=== PATIENT | male | born 1955 | race Caucasian/White ===

== ENCOUNTER 2016-10-27 06:31 | Emergency (ER) | payer BC ==
[2016-10-27 06:46] VITALS: TEMP 98.2; BMI 25.7
--- NOTE | 2016-10-27 07:10 | PDOC ---
History of Present Illness - General Chief Complaint: Palpitations Stated Complaint: PALPITATION Time Seen by Provider: 10/27/16 07:09 History Source: Patient Exam Limitations: No Limitations - History of Present Illness Initial Comments: 10/27/16 07:09 CHIEF COMPLAINT: Palpitations HISTORY OF PRESENT ILLNESS: This is a 61 year old male with a history of CAD s/ p MT, HTN, EtOH abuse, and Afib on warfarin/metoprolol who presents to the ED complaining of palpitations which woke him from sleep this morning. He reports that they lasted for several hours. He took his Toprol earlier than usual, with resolution of symptoms. He denies any associated shortness of breath, chest pain , diaphoresis, fevers/chills, or any other symptoms. He has not had LE edema, PND, orthpnea, or decreased ET. He denies cigarette smoking, calf pain, cough/ hemoptysis, recent travel/surgery, and family/personal history of hypercoaguability. He reports that he drank 6 glasses of wine before bed last night. V/s on arrival are unremarkable. EKG shows atrial fibrillation with ventricular rate of 96 with PVCs. Service Consultant is Dr. Angel Moreno ([facility]) [phone]. REVIEW OF SYSTEMS: GENERAL/CONSTITUTIONAL: No fever or chills. No weakness. No weight change. HEAD, EYES, EARS, NOSE AND THROAT: No change in vision. No ear pain or discharge. No sore throat. CARDIOVASCULAR: See HPI. RESPIRATORY: No cough, wheezing, or shortness of breath. GASTROINTESTINAL: No nausea, vomiting, diarrhea or constipation. GENITOURINARY: No dysuria, frequency, or change in urination. MUSCULOSKELETAL: No joint or muscle swelling or pain. No neck or back pain. SKIN: No rash or easy bruising. NEUROLOGIC: No headache, vertigo, loss of consciousness, or loss of sensation. PSYCHIATRIC: No depression or anxiety. ENDOCRINE: No increased thirst. No abnormal weight change. HEMATOLOGIC/LYMPHATIC: No anemia, easy bleeding, or history of blood clots. ALLERGIC/IMMUNOLOGIC: No hives or skin allergy. No latex allergy. PHYSICAL EXAM: GENERAL: The patient is awake, alert, and fully oriented, in no acute distress. ENT: Pupils equal, round and reactive to light, extraocular movements intact, sclera anicteric, conjunctiva clear. Neck supple. LUNGS: Clear to auscultation bilaterally. Normal excursion. No respiratory distress or use of accessory muscles. CV: Irregular rhythm, S1/S2, no MRG. Cap refill < 2 sec. ABDOMEN: Soft, non-distended, non-tender. EXTREMITIES: Normal range of motion, no edema. NEUROLOGICAL: Normal speech, normal gait. CN II-XII grossly intact. PSYCH: Normal mood, normal affect. SKIN: Diaphoretic. Past History - Past Medical History Allergies/Adverse Reactions: Allergies Allergy/AdvReac Type Severity Reaction Status Date / Time No Known Allergies Allergy Verified 10/27/16 06:42 Home Medications: Ambulatory Orders Metoprolol Succinate [Toprol XL -] 100 mg PO DAILY 07/04/14 Pantoprazole Sodium [Protonix] 40 mg PO DAILY 07/04/14 Warfarin Sodium 5 mg PO DAILY 07/04/14 Aspirin [ASA -] 81 mg PO DAILY 11/20/14 Atorvastatin Ca [Lipitor] 10 mg PO HS 11/20/14 Ramipril [Altace] 2.5 mg PO DAILY 11/20/14 Folic Acid - 1 mg PO DAILY #7 tablet 12/17/15 Thiamine HCl [Vitamin B1 -] 100 mg PO DAILY #14 tablet 12/17/15 Cardiac Disorders: Yes (CAD AFIB) GI Disorders: Yes (GERD) HTN: Yes Hypercholesterolemia: Yes - Immunization History Immunization Up to Date: Yes - Psycho/Social/Smoking Cessation Hx Anxiety: No Suicidal Ideation: No Smoking History: Never smoked Have you smoked in the past 12 months: No Number of Cigarettes Smoked Daily: 0 Cigars Per Day: 0 Information on smoking cessation initiated: No Hx Alcohol Use: No Drug/Substance Use Hx: No Substance Use Type: Alcohol Hx Substance Use Treatment: No *Physical Exam - Vital Signs Last Vital Signs Temp Pulse Resp BP Pulse Ox 98.2 F 82 20 130/91 98 10/27/16 06:42 10/27/16 06:42 10/27/16 06:42 10/27/16 06:42 10/27/16 06:42 ED Treatment Course - LABORATORY CBC & Chemistry Diagram: 10/27/16 07:30 10/27/16 07:30 Medical Decision Making - Medical Decision Making 10/27/16 07:42 A/P: 61 year old male with palpitations; previously known history of Afib, on warfarin and metoprolol (reports adherence to both). Currently asymptomatic. 1. EKG: Afib with ventricular rate 96, PVCs 2. Obtain CXR 3. Cardiac labs 4. 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 Contacted his venture capitalist's service and was given a number for a covering venture capitalist, Dr. Pearson- discussed the case with him. *DC/Admit/Observation/Transfer Diagnosis at time of Disposition: Palpitations - Discharge Dispostion Disposition: HOME Admit: No - Patient Instructions Printed Discharge Instructions: DI for Atrial Fibrillation Additional Instructions: You were seen today for palpitations. Your EKG shows atrial fibrillation with a controlled rate. Your cardiac lab work is all normal. Your INR (Coumadin level) is high at 3.7. Do not take your Coumadin tonight. Re- start it tomorrow. Continue all of your other prescribed medications. Please follow up with your venture capitalist tomorrow as you may need an adjustment in your medications (we let him know that you were here). Return here for chest pain, recurrent palpitations, shortness of breath, fainting/near fainting, or any other concerning symptoms.
[2016-10-27 07:53] LABS: BASOPHIL 1.4 % (0-2.0); EOSINOPHIL 2.3 % (0-4.5); MCH 30.8 pg (25.7-33.7); MEAN CELL VOLUME 90.5 fl (80-96); MEAN PLT VOLUME 9.3 fl (7.5-11.1); NEUTROPHILS 63.3 % (42.8-82.8); PLATELET COUNT 262 K/MM3 (134-434); RDW 13.6 % (11.9-15.9); WHITE BLOOD COUNT 7.7 K/mm3 (4.0-10.0)
[2016-10-27 07:54] LABS: INR 3.74 (0.82-1.09); PROTHROMBIN TIME (PATIENT) 42.3 SEC (9.98-11.88)
[2016-10-27 08:07] LABS: ANION GAP 8 (8-16); BILIRUBIN,TOTAL 0.5 mg/dL (0.2-1.0); CALCIUM 8.4 mg/dL (8.5-10.1); CO2 27 mmol/L (21-32); CREATININE 0.9 mg/dL (0.7-1.3); GLUCOSE,RANDOM 89 mg/dL (74-106); MAGNESIUM 1.9 mg/dL (1.8-2.4); SGOT/AST 27 U/L (15-37); SGPT/ALT 22 U/L (12-78); TOT PROT 6.9 g/dl (6.4-8.2)
--- NOTE | 2016-10-27 08:07 | PDOC ---
*Physical Exam - Vital Signs Last Vital Signs Temp Pulse Resp BP Pulse Ox 98.2 F 82 20 130/91 98 10/27/16 06:42 10/27/16 06:42 10/27/16 06:42 10/27/16 06:42 10/27/16 06:42 - Physical Exam Comments: 10/27/16 08:07 MIDLEVEL NOTE Pt seen by Midlevel Provider under my direct supervision. Pt interviewed and examined. Ancillary studies reviewed. I agree with plan as outlined by Midlevel Provider. 61 year old male with a history of CAD s/p ND, HTN, EtOH abuse, and Afib on warfarin/metoprolol who presents to the ED complaining of palpitations which woke him from sleep this morning. Patient states that he normally takes his Toprol-XL at 9 AM, but because of the palpitations he took it at 6 AM this morning He states that he is back to himself now is no longer experiencing palpitations He denies any associated chest pain or shortness of breath EKG Atrial fibrillation, with a ventricular response rate of 96 Normal axis Normal QRS duration Normal QTC Nonspecific ST-T waves 10/27/16 08:49 Laboratory Results - last 24 hr 10/27/16 10/27/16 10/27/16 07:30 07:30 07:30 WBC 7.7 RBC 4.61 Hgb 14.2 Hct 41.7 MCV 90.5 MCHC 34.0 RDW 13.6 Plt Count 262 MPV 9.3 D Neutrophils % 63.3 Lymphocytes % 24.5 D Monocytes % 8.5 Eosinophils % 2.3 Basophils % 1.4 INR 3.74 H Sodium 143 Potassium 4.3 Chloride 108 H Carbon Dioxide 27 Anion Gap 8 BUN 11 D Creatinine 0.9 Creat Clearance w eGFR > 60 Random Glucose 89 Calcium 8.4 L Magnesium 1.9 Total Bilirubin 0.5 AST 27 ALT 22 Alkaline Phosphatase 73 Creatine Kinase 241 Creatine Kinase Index 1.0 CK-MB (CK-2) 2.447 CK-MB (CK-2) Rel Index Troponin I < 0.02 B-Natriuretic Peptide 344.17 H Total Protein 6.9 Albumin 4.0 10/27/16 07:30 WBC RBC Hgb Hct MCV MCHC RDW Plt Count MPV Neutrophils % Lymphocytes % Monocytes % Eosinophils % Basophils % INR Sodium Potassium Chloride Carbon Dioxide Anion Gap BUN Creatinine Creat Clearance w eGFR Random Glucose Calcium Magnesium Total Bilirubin AST ALT Alkaline Phosphatase Creatine Kinase Creatine Kinase Index CK-MB (CK-2) CK-MB (CK-2) Rel Index Cancelled Troponin I B-Natriuretic Peptide Total Protein Albumin Chest x-ray-poor inspiratory effort, no acute infiltrate seen Case and all results d/w pts covering museum docent, Dr Pearson (covering Dr. Andrew Saha, patient's regular museum docent at [facility]) ED Treatment Course - LABORATORY CBC & Chemistry Diagram: 10/27/16 07:30 10/27/16 07:30 - ADDITIONAL ORDERS Additional order review: Laboratory Results 10/27/16 07:30 INR 3.74 H 10/27/16 07:30 RBC 4.61 MCV 90.5 MCHC 34.0 RDW 13.6 MPV 9.3 D Neutrophils % 63.3 Lymphocytes % 24.5 D Monocytes % 8.5 Eosinophils % 2.3 Basophils % 1.4 *DC/Admit/Observation/Transfer Diagnosis at time of Disposition: Palpitations - Discharge Dispostion Disposition: HOME - Patient Instructions Printed Discharge Instructions: DI for Atrial Fibrillation Additional Instructions: You were seen today for palpitations. Your EKG shows atrial fibrillation with a controlled rate. Your cardiac lab work is all normal. Your INR (Coumadin level) is high at 3.7. Do not take your Coumadin tonight. Re- start it tomorrow. Continue all of your other prescribed medications. Please follow up with your museum docent tomorrow as you may need an adjustment in your medications (we let him know that you were here). Return here for chest pain, recurrent palpitations, shortness of breath, fainting/near fainting, or any other concerning symptoms.
[2016-10-27 08:10] LABS: ALK PHOS 73 U/L (45-117); TROPONIN I < 0.02 ng/ml (0.00-0.05)
[2016-10-27 08:48] VITALS: BP 128/90; PULSE 86
--- NOTE | 2016-10-27 08:49 | EKG ---
Test Reason : Blood Pressure : / mmHG Vent. Rate : 096 BPM Atrial Rate : 102 BPM P-R Int : 000 ms QRS Dur : 094 ms QT Int : 356 ms P-R-T Axes : 000 014 022 degrees QTc Int : 449 ms ATRIAL FIBRILLATION WITH PREMATURE VENTRICULAR OR ABERRANTLY CONDUCTED COMPLEXES ABNORMAL ECG NO PREVIOUS ECGS AVAILABLE Confirmed by RADHA RAMOS, MISHA ([id number]) on 10/27/2016 8:48:45 AM Referred By: Confirmed By:MISHA GARCIA MD
== END 2016-10-27 09:40 | disposition home or self-care (01) ==
LOC: JER 06:31
DX: R00.2 Palpitations (principal); I48.91 Unspecified atrial fibrillation; Z79.01 Long term (current) use of anticoagulants; I25.2 Old myocardial infarction; I11.9 Hypertensive heart disease without heart failure; E78.00 Pure hypercholesterolemia, unspecified; K21.9 Gastro-esophageal reflux disease without esophagitis
CPT/HCPCS: 36415; 71010-TC; 80053; 82550; 82553; 83735; 83880; 84484; 85025; 85610; 93005; 93010; 99282-25

== ENCOUNTER 2017-08-30 17:17 | Emergency (ER) | payer BC ==
[2017-08-30 17:26] VITALS: BP 146/100; PULSE 71; TEMP 98; BMI 26.4
--- NOTE | 2017-08-30 17:42 | PDOC ---
Attending Attestation - Resident Resident Name: OmarBlu - HPI HPI: 09/01/17 09:09 Pt presents to the ED with a two day history of intermittent shooting chest pain. Episodes last seconds. No associated symptoms. Negative stress test per patient report one year ago - Physicial Exam PE: 09/01/17 09:10 Agree with resident exam. Patient is well appearing. Lungs are clear, heart is regular rate and rhythm. - Medical Decision Making 09/01/17 09:12 Pt presents to the ED complaining of shooting chest pain that lasts seconds. Patient has cardiac history, but pain is extremely atypical and EKG and cardiac enzymes are negative. patient will be discharged home with instructions to return immediately to the ED for new or worsening symptoms and to call his technical healthcare consultant on Friday.
[2017-08-30] MEDS ORDERED: ASPIRIN 81 MG CHEWABLE TABLETS PO ONE (18:07)
--- NOTE | 2017-08-30 18:25 | PDOC ---
History of Present Illness - General Chief Complaint: Chest Pain Stated Complaint: CHEST Time Seen by Provider: 08/30/17 17:39 History Source: Patient Exam Limitations: No Limitations - History of Present Illness Initial Comments: 08/30/17 18:15 Patient is a 62 yo M with a PMHx of HTN, Afib (2011, on coumadin), [place] (2005), presented today because of intermittent, non-radiating, stabbing, left chest discomfort since Friday which gets worse after eating dinner and only lasts a few moments. He last had the discomfort 45 min before ED arrival. He says Metoprolol alleviates the discomfort. He says his last stress test was last year and was normal. Patient denies nausea, vomiting, dizziness, SOB, LOC, and abdominal pain.08/30/17 18:30 Past History - Past Medical History Allergies/Adverse Reactions: Allergies Allergy/AdvReac Type Severity Reaction Status Date / Time No Known Allergies Allergy Verified 08/30/17 17:57 Home Medications: Ambulatory Orders Metoprolol Succinate [Toprol XL -] 100 mg PO DAILY 07/04/14 Pantoprazole Sodium [Protonix] 40 mg PO DAILY 07/04/14 Warfarin Sodium 5 mg PO DAILY 07/04/14 Aspirin [ASA -] 81 mg PO DAILY 11/20/14 Atorvastatin Ca [Lipitor] 10 mg PO HS 11/20/14 Ramipril [Altace] 2.5 mg PO DAILY 11/20/14 Levothyroxine [Synthroid -] 50 mcg PO DAILY 08/30/17 Metoprolol Succinate [Toprol Xl] 50 mg PO HS 08/30/17 Cardiac Disorders: Yes (CAD AFIB) COPD: No GI Disorders: Yes (GERD) HTN: Yes Hypercholesterolemia: Yes - Surgical History Abdominal Surgery: Yes (HERNIA) - Immunization History Immunization Up to Date: Yes - Suicide/Smoking/Psychosocial Hx Smoking History: Never smoked Have you smoked in the past 12 months: No Number of Cigarettes Smoked Daily: 0 Cigars Per Day: 0 Hx Alcohol Use: No Drug/Substance Use Hx: No Substance Use Type: Alcohol Hx Substance Use Treatment: No Review of Systems - Review of Systems Able to Perform ROS?: Yes Constitutional: No: Chills, Fever HEENTM: No: Recent change in vision Respiratory: No: Cough, Wheezing Cardiac (ROS): Yes: Chest Pain, Other. No: Lightheadedness, Palpitations, Syncope ABD/GI: No: Diarrhea, Nausea : No: Dysuria Neurological: No: Headache, Numbness, Paresthesia *Physical Exam - Vital Signs Last Vital Signs Temp Pulse Resp BP Pulse Ox 98.0 F 71 20 146/100 100 08/30/17 17:20 08/30/17 17:20 08/30/17 17:20 08/30/17 17:20 08/30/17 17:20 - Physical Exam Comments: 08/30/17 18:31 General: In no acute distress, appears comfortable on phone HEENT: EOMI, PERRL, oropharynx clear without exudates Neck: supple, No JVD CV: Irregularly irregular, no murmurs appreciated, 2+ radial pulses Lungs: CTA b/l, no rales rhonchi or wheezing Abd: normoactive bowel sounds, nt, nd Heart Score/ECG Review - Age Age: 45-65 - ECG Intrepretation Rhythm: Irregularly Irregular ED Treatment Course - LABORATORY CBC & Chemistry Diagram: 08/30/17 18:30 08/30/17 18:30 - ADDITIONAL ORDERS Additional order review: 08/30/17 18:30 RBC 4.87 MCV 90.6 MCHC 33.6 RDW 13.6 MPV 8.3 D Neutrophils % 60.2 Lymphocytes % 26.2 Monocytes % 8.0 Eosinophils % 4.5 D Basophils % 1.1 - RADIOLOGY Radiology Studies Ordered: Category Date Time Status CHEST X-RAY PORTABLE* [RAD] Stat Radiology 08/30/17 17:57 Taken - Medications Given in the ED: ED Medications Discontinued Medications Generic Name Dose Route Start Last Admin Trade Name Freq PRN Reason Stop Dose Admin Aspirin 81 mg 08/30/17 18:07 08/30/17 18:42 Asa - PO 08/30/17 18:08 81 mg ONCE ONE Administration Medical Decision Making - Medical Decision Making 08/30/17 18:40 Patient is a 62 yo M with a PMHx of HTN, Afib (on coumadin), [place] (2005), presented today because of intermittent, non-radiating, stabbing, left chest discomfort. EKG CXR CBC, CMP, Lipase PT/INR ASA 81mg Trops 08/30/17 18:58 Signed patient out to Dr. Davies and Dr. Hightower. *DC/Admit/Observation/Transfer Diagnosis at time of Disposition: Chest pain Qualifiers: Chest pain type: unspecified Qualified Code(s): R07.9 - Chest pain, unspecified - Referrals Referrals: STAFF,NOT ON [Primary Care Provider] - - Patient Instructions - Post Discharge Activity
[2017-08-30 18:34] LABS: BASOPHIL 1.1 % (0-2.0); EOSINOPHIL 4.5 % (0-4.5); MCH 30.4 pg (25.7-33.7); MCHC 33.6 g/dl (32.0-35.9); MEAN CELL VOLUME 90.6 fl (80-96); MEAN PLT VOLUME 8.3 fl (7.5-11.1); NEUTROPHILS 60.2 % (42.8-82.8); PLATELET COUNT 259 K/MM3 (134-434); RDW 13.6 % (11.9-15.9); WHITE BLOOD COUNT 7.9 K/mm3 (4.0-10.0)
[2017-08-30] MEDS ORDERED: ASPIRIN 81 MG CHEWABLE TABLETS ONE (18:41)
[2017-08-30 19:03] LABS: ALBUMIN 3.8 g/dl (3.4-5.0); ANION GAP 6 (8-16); BILIRUBIN,TOTAL 0.5 mg/dL (0.2-1.0); CALCIUM 8.3 mg/dL (8.5-10.1); CO2 30 mmol/L (21-32); GLUCOSE,RANDOM 109 mg/dL (74-106); SGOT/AST 20 U/L (15-37); SGPT/ALT 23 U/L (12-78)
[2017-08-30 19:05] LABS: ALK PHOS 71 U/L (45-117); CPK 132 IU/L (39-308); TROPONIN I < 0.02 ng/ml (0.00-0.05)
[2017-08-30 19:06] LABS: INR 3.68 (0.82-1.09); PROTHROMBIN TIME (PATIENT) 41.6 SEC (9.98-11.88)
--- NOTE | 2017-08-30 19:17 | PDOC ---
*Physical Exam - Vital Signs Last Vital Signs Temp Pulse Resp BP Pulse Ox 98.0 F 71 20 146/100 100 08/30/17 17:20 08/30/17 17:20 08/30/17 17:20 08/30/17 17:20 08/30/17 17:20 - Physical Exam General Appearance: Yes: Nourished, Appropriately Dressed Neck: positive: Trachea midline, Supple Respiratory/Chest: positive: Lungs Clear, Normal Breath Sounds. negative: Respiratory Distress, Accessory Muscle Use, Labored Respiration, Rapid RR Cardiovascular: positive: S1, S2. negative: JVD, Murmur Gastrointestinal/Abdominal: positive: Soft. negative: Tender, Distended, Guarding, Rebound, Tenderness Extremity: positive: Normal Capillary Refill, Normal Inspection Neurologic: positive: Fully Oriented, Alert ED Treatment Course - LABORATORY CBC & Chemistry Diagram: 08/30/17 18:30 08/30/17 18:30 - ADDITIONAL ORDERS Additional order review: Laboratory Results 08/30/17 08/30/17 18:32 18:30 PT with INR 41.60 H INR 3.68 H Sodium 140 Potassium 4.3 Chloride 104 Carbon Dioxide 30 Anion Gap 6 L BUN 16 D Creatinine 1.0 Creat Clearance w eGFR > 60 Random Glucose 109 H D Calcium 8.3 L Total Bilirubin 0.5 AST 20 D ALT 23 Alkaline Phosphatase 71 Creatine Kinase 132 Troponin I < 0.02 Total Protein 7.0 Albumin 3.8 Lipase 178 08/30/17 18:30 RBC 4.87 MCV 90.6 MCHC 33.6 RDW 13.6 MPV 8.3 D Neutrophils % 60.2 Lymphocytes % 26.2 Monocytes % 8.0 Eosinophils % 4.5 D Basophils % 1.1 - Medications Given in the ED: ED Medications Discontinued Medications Generic Name Dose Route Start Last Admin Trade Name Freq PRN Reason Stop Dose Admin Aspirin 81 mg 08/30/17 18:07 08/30/17 18:42 Asa - PO 08/30/17 18:08 81 mg ONCE ONE Administration Medical Decision Making - Medical Decision Making 08/30/17 19:23 Patient signed out by Dr. Valdes (Resident) and under the care of Dr. Hightower ( Attending) Patient is a 62 y.o. male with a PMH of AFib (on Coumadin), HTN and s/p [place] (2005 ) who presented with a 3 day h/o chest pain. Initial clinical suspicion for ACS given patient history. Troponin (-) x1, CXR negative for acute cardiopulmonary process. Patient resting comfortably, tolerating PO intake, ambulatory and improved. Patient discharged home with return precautions. *DC/Admit/Observation/Transfer Diagnosis at time of Disposition: Chest pain Qualifiers: Chest pain type: unspecified Qualified Code(s): R07.9 - Chest pain, unspecified - Discharge Dispostion Disposition: HOME Condition at time of disposition: Stable - Referrals Referrals: STAFF,NOT ON [Primary Care Provider] - Farideh Walter MD [Staff Physician] - Sy Patel MD [Staff Physician] - - Patient Instructions Printed Discharge Instructions: DI for Atypical Chest Pain Additional Instructions: Please make an appointment with Dr. Walter to establish primary care. Please also make an appointment with your enamel dipper or Dr. Sy Patel for evaluation of your chest pain. Please return to the Emergency Department for any worsening or concerning symptoms. - Post Discharge Activity
--- NOTE | 2017-09-01 09:51 | EKG ---
Test Reason : Blood Pressure : / mmHG Vent. Rate : 090 BPM Atrial Rate : 220 BPM P-R Int : 000 ms QRS Dur : 092 ms QT Int : 358 ms P-R-T Axes : 000 024 057 degrees QTc Int : 437 ms ATRIAL FIBRILLATION ABNORMAL ECG WHEN COMPARED WITH ECG OF 27-OCT-2016 06:48, NO SIGNIFICANT CHANGE WAS FOUND Confirmed by LEWIS SELLERS MD ([id number]) on 09/01/2017 9:51:28 AM Referred By: Confirmed By:LEWIS SELLERS MD
== END 2017-08-30 19:48 | disposition home or self-care (01) ==
LOC: JER 17:17
DX: R07.9 Chest pain, unspecified (principal); I25.2 Old myocardial infarction; I10 Essential (primary) hypertension; I48.91 Unspecified atrial fibrillation; Z79.01 Long term (current) use of anticoagulants; E78.00 Pure hypercholesterolemia, unspecified; K21.9 Gastro-esophageal reflux disease without esophagitis
CPT/HCPCS: 36415; 71010-TC; 80053; 82550; 83690; 84484; 85025; 85610; 93005; 93010; 99284-25

== ENCOUNTER 2017-09-30 23:46 | Emergency (ER) | payer BC ==
[2017-10-01 00:16] VITALS: BP 143/96; PULSE 87; BMI 59.8
--- NOTE | 2017-10-01 01:32 | PDOC ---
History of Present Illness - General History Source: Patient <Shane Garcia - Last Filed: 10/01/17 02:20> - History of Present Illness Initial Comments: 10/01/17 01:40 The patient is a 62 year old male, with a significant past medical history of HTN, Afib (2011, on coumadin), [place] (2005), who presents to the emergency department s/p molar extraction yesterday for evaluation of persistent oral bleeding. He denies chest pain, shortness of breath, headache and dizziness. He denies fever, chills, nausea, vomit, diarrhea and constipation. He denies dysuria, frequency, urgency and hematuria. Allergies: NKDA <Tamara Marin - Last Filed: 10/01/17 04:09> - General Chief Complaint: Laceration Stated Complaint: BLEEDING FROM MOUTH Time Seen by Provider: 10/01/17 01:29 Past History - Past Medical History Cardiac Disorders: Yes (CAD AFIB) COPD: No GI Disorders: Yes (GERD) HTN: Yes Hypercholesterolemia: Yes - Surgical History Abdominal Surgery: Yes (HERNIA) - Immunization History Immunization Up to Date: Yes - Suicide/Smoking/Psychosocial Hx Smoking History: Never smoked Have you smoked in the past 12 months: No Number of Cigarettes Smoked Daily: 0 Cigars Per Day: 0 Information on smoking cessation initiated: No Hx Alcohol Use: No Drug/Substance Use Hx: No Substance Use Type: Alcohol Hx Substance Use Treatment: No <HughelraShane - Last Filed: 10/01/17 02:20> <Tamara Marin - Last Filed: 10/01/17 04:09> - Past Medical History Allergies/Adverse Reactions: Allergies Allergy/AdvReac Type Severity Reaction Status Date / Time No Known Allergies Allergy Verified 10/01/17 03:52 Home Medications: Ambulatory Orders Metoprolol Succinate [Toprol XL -] 100 mg PO DAILY 07/04/14 Pantoprazole Sodium [Protonix] 40 mg PO DAILY 07/04/14 Warfarin Sodium 5 mg PO DAILY 07/04/14 Aspirin [ASA -] 81 mg PO DAILY 11/20/14 Atorvastatin Ca [Lipitor] 10 mg PO HS 11/20/14 Ramipril [Altace] 2.5 mg PO DAILY 11/20/14 Levothyroxine [Synthroid -] 50 mcg PO DAILY 08/30/17 Metoprolol Succinate [Toprol Xl] 50 mg PO HS 08/30/17 Review of Systems - Review of Systems Able to Perform ROS?: Yes Comments:: 10/01/17 01:40 CONSTITUTIONAL: Absent: fever, no chills, no fatigue EYES: Absent: visual changes ENT: (+) persistent bleeding s/p molar extraction Absent: ear pain, no sore throat CARDIOVASCULAR: Absent: chest pain, no palpitations RESPIRATORY: Absent: cough, no SOB GI: Absent: abdominal pain, no nausea, no vomiting, no constipation, no diarrhea GENITOURINARY: Absent: dysuria, no frequency, no hematuria MUSCULOSKELETAL: Absent: back pain, no arthralgia, no myalgia SKIN: Absent: rash NEURO: Absent: headache <Tamara Marin - Last Filed: 10/01/17 04:09> *Physical Exam - Vital Signs Last Vital Signs Temp Pulse Resp BP Pulse Ox 87 16 143/96 10/01/17 00:12 10/01/17 00:12 10/01/17 00:12 <Shane Garcia - Last Filed: 10/01/17 02:20> - Vital Signs Last Vital Signs Temp Pulse Resp BP Pulse Ox 87 16 143/96 10/01/17 00:12 10/01/17 00:12 10/01/17 00:12 - Physical Exam Comments: 10/01/17 01:41 GENERAL: Well-appearing, well-nourished. No apparent distress. HEENT: (+) actuve bleeding from tooth#1 extraction site. Normocephalic, atraumatic. PERRL, EOM intact. CARDIOVASCULAR: Normal S1, S2. Regular rate and rhythm. PULMONARY: Clear to auscultation bilaterally. ABDOMEN: Soft, non-distended, non-tender. EXTREMITIES: Normal ROM in all four extremities. No gross deformities. SKIN: Warm, dry. No rash NEUROLOGICAL: No focal neurological deficits. <Tamara Marin - Last Filed: 10/01/17 04:09> Medical Decision Making - Medical Decision Making 10/01/17 02:18 Dr. Garcia: The scribe's documentation has been prepared under my direction and personally reviewed by me in its entirery. I confirm that the note above accurately reflects all work, treatment, procedures, and medical decision making performed by me. Bleeding at site has slown down after surgicel and gauze. Pt to be discharged and follow up to follow up with his dentist in the morning. <Shane Garcia - Last Filed: 10/01/17 02:20> *DC/Admit/Observation/Transfer - Discharge Dispostion Admit: No <Shane Garcia - Last Filed: 10/01/17 02:20> - Attestations Scribe Attestion: 10/01/17 01:44 Documentation prepared by Tamara Marin, acting as manager medical device for Shane Garcia DO <Tamara Marin - Last Filed: 10/01/17 04:09> Diagnosis at time of Disposition: Bleeding gums, H/O tooth extraction - Discharge Dispostion Disposition: HOME Condition at time of disposition: Stable - Patient Instructions Printed Discharge Instructions: DI on Tooth Extraction, DI for Post-Surgical Bleeding Additional Instructions: hold taking your Coumadin for one more day. Please your dentist in the morning.
== END 2017-10-01 02:27 | disposition home or self-care (01) ==
LOC: JER 23:46
DX: K06.8 Other specified disorders of gingiva and edentulous alveolar ridge (principal); I10 Essential (primary) hypertension; I48.91 Unspecified atrial fibrillation; Z79.01 Long term (current) use of anticoagulants; I25.2 Old myocardial infarction; I25.10 Atherosclerotic heart disease of native coronary artery without angina pectoris
CPT/HCPCS: 99281-25

== ENCOUNTER 2017-10-01 03:49 | Emergency (ER) | payer BC ==
[2017-10-01 04:02] VITALS: TEMP 98.7; BMI 27.8
[2017-10-01] MEDS ORDERED: SODIUM CHLORIDE 1,000 ML IV STA ×2 (04:04→04:52)
--- NOTE | 2017-10-01 04:05 | PDOC ---
History of Present Illness - History of Present Illness Initial Comments: 10/01/17 04:09 The patient is a 62 year old male, with a significant past medical history of HTN, Afib (2011, on coumadin), MD (2005), who returns to the emergency department via ems for persistent oral bleeding and new onset dizziness since being discharged from the emergency department a few hours ago for bleeding from the site of his molar extraction. The patient states the bleeding has increased since returning home, and he reports now feeling dizzy. The patient is s/p molar extraction yesterday morning. The patient is taking warfarin daily. He denies chest pain, shortness of breath, headache. He denies fever, chills, nausea, vomit, diarrhea and constipation. He denies dysuria, frequency, urgency and hematuria. Allergies: NKDA <Tamara Marin - Last Filed: 10/01/17 06:19> - General History Source: Patient <Shane Garcia - Last Filed: 10/01/17 19:16> - General Chief Complaint: Laceration Stated Complaint: ORAL BLEED Time Seen by Provider: 10/01/17 04:04 Past History <Tamara Marin - Last Filed: 10/01/17 06:19> - Past Medical History Cardiac Disorders: Yes (CAD AFIB) COPD: No GI Disorders: Yes (GERD) HTN: Yes Hypercholesterolemia: Yes - Surgical History Abdominal Surgery: Yes (HERNIA) - Immunization History Immunization Up to Date: Yes - Suicide/Smoking/Psychosocial Hx Smoking History: Never smoked Have you smoked in the past 12 months: No Number of Cigarettes Smoked Daily: 0 Cigars Per Day: 0 Information on smoking cessation initiated: No Hx Alcohol Use: No Drug/Substance Use Hx: No Substance Use Type: Alcohol Hx Substance Use Treatment: No <Shane Garcia - Last Filed: 10/01/17 19:16> - Past Medical History Allergies/Adverse Reactions: Allergies Allergy/AdvReac Type Severity Reaction Status Date / Time No Known Allergies Allergy Verified 10/01/17 03:52 Home Medications: Ambulatory Orders Metoprolol Succinate [Toprol XL -] 100 mg PO DAILY 07/04/14 Pantoprazole Sodium [Protonix] 40 mg PO DAILY 07/04/14 Warfarin Sodium 5 mg PO DAILY 07/04/14 Aspirin [ASA -] 81 mg PO DAILY 11/20/14 Atorvastatin Ca [Lipitor] 10 mg PO HS 11/20/14 Ramipril [Altace] 2.5 mg PO DAILY 11/20/14 Levothyroxine [Synthroid -] 50 mcg PO DAILY 08/30/17 Metoprolol Succinate [Toprol Xl] 50 mg PO HS 08/30/17 Review of Systems - Review of Systems Able to Perform ROS?: Yes Comments:: 10/01/17 04:11 CONSTITUTIONAL: Absent: fever, no chills, no fatigue EYES: Absent: visual changes ENT: (+) persistent bleeding s/p molar extraction Absent: ear pain, no sore throat CARDIOVASCULAR: Absent: chest pain, no palpitations RESPIRATORY: Absent: cough, no SOB GI: Absent: abdominal pain, no nausea, no vomiting, no constipation, no diarrhea GENITOURINARY: Absent: dysuria, no frequency, no hematuria MUSCULOSKELETAL: Absent: back pain, no arthralgia, no myalgia SKIN: Absent: rash NEURO: (+) dizziness. Absent: headache <Tamara Marin - Last Filed: 10/01/17 06:19> *Physical Exam - Vital Signs Last Vital Signs Temp Pulse Resp BP Pulse Ox 98.7 F 91 H 14 140/70 97 10/01/17 03:53 10/01/17 03:53 10/01/17 03:53 10/01/17 03:53 10/01/17 03:53 - Physical Exam Comments: 10/01/17 04:11 GENERAL: (+) pale appearing, well-nourished. No apparent distress. HEENT: (+) actuve bleeding from tooth#1 extraction site. Normocephalic, atraumatic. PERRL, EOM intact. CARDIOVASCULAR: Normal S1, S2. Regular rate and rhythm. PULMONARY: Clear to auscultation bilaterally. ABDOMEN: Soft, non-distended, non-tender. EXTREMITIES: Normal ROM in all four extremities. No gross deformities. SKIN: (+) pale. Warm, dry. No rash NEUROLOGICAL: No focal neurological deficits. \ <Tamara Marin - Last Filed: 10/01/17 06:19> - Vital Signs Last Vital Signs Temp Pulse Resp BP Pulse Ox 98.7 F 91 H 14 140/70 97 10/01/17 03:53 10/01/17 03:53 10/01/17 03:53 10/01/17 03:53 10/01/17 03:53 <Shane Garcia - Last Filed: 10/01/17 19:16> Heart Score/ECG Review - ECG Intrepretation Comment:: 10/01/17 05:00 EKG was read by Dr. Garcia at 04:56 Impression: Atrial fibrillation Vent.Rate: 77 bpm <Tamara Marin - Last Filed: 10/01/17 06:19> ED Treatment Course - LABORATORY CBC & Chemistry Diagram: 10/01/17 05:01 10/01/17 05:01 <Tamara Marin - Last Filed: 10/01/17 06:19> - LABORATORY CBC & Chemistry Diagram: 10/01/17 07:29 10/01/17 07:29 <Shane Garcia - Last Filed: 10/01/17 19:16> Medical Decision Making - Medical Decision Making 10/01/17 05:34 Dr. Garcia: The scribe's documentation has been prepared under my direction and personally reviewed by me in its entirery. I confirm that the note above accurately reflects all work, treatment, procedures, and medical decision making performed by me. patient received three liters of NS and BP is just 100 Systolic. Pt no longer feels dizzy. However blood work still needs to be drawn as patient was hypotensive <Shane Garcia - Last Filed: 10/01/17 19:16> *DC/Admit/Observation/Transfer - Attestations Scribe Attestion: 10/01/17 04:12 Documentation prepared by Tamara Marin, acting as medical records analyst for Shane Garcia DO <Tamara Marin - Last Filed: 10/01/17 06:19> - Discharge Dispostion Admit: No <Shane Garcia - Last Filed: 10/01/17 19:16> Diagnosis at time of Disposition: H/O tooth extraction, Bleeding gums - Discharge Dispostion Disposition: HOME Condition at time of disposition: Stable - Referrals Referrals: Memo Encarnacion MD [Staff Physician] - Cesar Freire [Staff Physician] - - Patient Instructions Printed Discharge Instructions: DI for Post-Surgical Bleeding Additional Instructions: Please only have liquids or soft foods today. Please make an appointment to see your dentist today and please follow up with the oral surgeon. please make an appointment to see your PMD. Please return to the ED if you start to bleed or any further concerns.
[2017-10-01] MEDS ORDERED: METOPROLOL TARTRATE 5 MG/5 ML VIAL IVPUSH ONE (04:07)
[2017-10-01] MEDS ORDERED: METOPROLOL TARTRATE 5 MG/5 ML VIAL ONE (04:12)
[2017-10-01] MEDS ORDERED: SODIUM CHLORIDE 0.9% 1000 ML INFUS.BAG IV ONE (04:46)
[2017-10-01 04:52] VITALS: BP 91/62; PULSE 85
[2017-10-01 05:12] LABS: BASO % 0.6 % (0-2.0); EOS % 0.2 % (0-4.5); MCH 30.7 pg (25.7-33.7); MCHC 33.2 g/dl (32.0-35.9); MEAN CELL VOLUME 92.6 fl (80-96); MEAN PLT VOLUME 8.3 fl (7.5-11.1); NEUT % 86.3 % (42.8-82.8); PLATELET COUNT 215 K/MM3 (134-434); RDW 13.8 % (11.9-15.9); WHITE BLOOD COUNT 9.7 K/mm3 (4.0-10.0)
[2017-10-01 05:30] LABS: INR 2.03 (0.82-1.09); PROTHROMBIN TIME (PATIENT) 22.9 SEC (9.98-11.88)
[2017-10-01 05:38] LABS: ALBUMIN 2.7 g/dl (3.4-5.0); ANION GAP 7 (8-16); BILIRUBIN,TOTAL 0.8 mg/dL (0.2-1.0); CALCIUM 7.2 mg/dL (8.5-10.1); CO2 24 mmol/L (21-32); CREATININE 0.9 mg/dL (0.7-1.3); GLUCOSE,RANDOM 145 mg/dL (74-106); SGOT/AST 12 U/L (15-37); SGPT/ALT 15 U/L (12-78); TOT PROT 5.1 g/dl (6.4-8.2)
[2017-10-01 05:41] LABS: ALK PHOS 57 U/L (45-117)
[2017-10-01 05:44] LABS: CPK 85 IU/L (39-308)
[2017-10-01 05:45] LABS: TROPONIN I < 0.02 ng/ml (0.00-0.05)
[2017-10-01] MEDS ORDERED: CALCIUM GLUCONATE 10% - 1,000 MG/10 ML VIAL IVPB ONE (05:55)
[2017-10-01] MEDS ORDERED: CALCIUM GLUCONATE 10% - 1,000 MG/10 ML VIAL ONE (06:12)
--- NOTE | 2017-10-01 07:25 | PDOC ---
*Physical Exam - Vital Signs Last Vital Signs Temp Pulse Resp BP Pulse Ox 98.7 F 85 16 91/62 100 10/01/17 03:53 10/01/17 04:50 10/01/17 04:50 10/01/17 04:50 10/01/17 04:50 - Physical Exam Comments: 10/01/17 07:23 gen: aaox3, nad HEENT: no active bleeding from molar extraction site at this time heart: +s1s2 reg Lungs: cta b/l abd: soft, nt/nd +bs Ext: no c/c/e bp 95 systolic at this time ED Treatment Course - LABORATORY CBC & Chemistry Diagram: 10/01/17 07:29 10/01/17 07:29 - ADDITIONAL ORDERS Additional order review: Laboratory Results 10/01/17 10/01/17 10/01/17 05:01 05:01 05:01 PT with INR INR Sodium 143 Potassium 4.8 Chloride 112 H Carbon Dioxide 24 Anion Gap 7 L BUN 20 H D Creatinine 0.9 Creat Clearance w eGFR > 60 Random Glucose 145 H D Calcium 7.2 L Total Bilirubin 0.8 D AST 12 L D ALT 15 D Alkaline Phosphatase 57 Creatine Kinase 85 Troponin I < 0.02 Total Protein 5.1 L D Albumin 2.7 L D Blood Type A POSITIVE Antibody Screen Negative 10/01/17 05:01 PT with INR 22.90 H INR 2.03 H D Sodium Potassium Chloride Carbon Dioxide Anion Gap BUN Creatinine Creat Clearance w eGFR Random Glucose Calcium Total Bilirubin AST ALT Alkaline Phosphatase Creatine Kinase Troponin I Total Protein Albumin Blood Type Antibody Screen 10/01/17 05:01 RBC 3.90 L MCV 92.6 MCHC 33.2 RDW 13.8 MPV 8.3 Neutrophils % 86.3 H D Lymphocytes % 8.3 D Monocytes % 4.6 Eosinophils % 0.2 D Basophils % 0.6 - Medications Given in the ED: ED Medications Discontinued Medications Generic Name Dose Route Start Last Admin Trade Name Freq PRN Reason Stop Dose Admin Calcium Gluconate 1,000 mg 10/01/17 05:55 10/01/17 06:22 Calcium Gluconate 10% - IVPB 10/01/17 05:56 1,000 mg ONCE ONE Administration Sodium Chloride 1,000 mls @ 1,000 mls/hr 10/01/17 04:04 10/01/17 04:36 Normal Saline - IV 10/01/17 05:03 1,000 mls/hr ASDIR STA Administration Sodium Chloride 1,000 mls @ 1,000 mls/hr 10/01/17 04:52 10/01/17 04:57 Normal Saline - IV 10/01/17 05:51 1,000 mls/hr ASDIR STA Administration Metoprolol Tartrate 5 mg 10/01/17 04:07 10/01/17 04:36 Lopressor Injection - IVPUSH 10/01/17 04:08 5 mg ONCE ONE Administration Sodium Chloride 1,000 ml 10/01/17 04:46 10/01/17 04:47 Normal Saline - IV 10/01/17 04:47 1,000 ml NOW ONE Administration Medical Decision Making - Medical Decision Making 10/01/17 07:24 pt signed out pending repeat labs and BP monitoring will repeat CBC and CHEM given calcium replacement and 3L ns overnight no active bleeding from tooth extraction site at this time no lightheaded or dizziness repeat labs ordered. BP 95 systolic at this time 10/01/17 08:32 hgb stable on repeat h/h, calcium improved. no active bleeding while in the ED pt denies feeling lightheaded or dizziness. no cp/sob pt requesting to go home states he will call his dentist and will give name of oral surgeon. pt understands all reasons to return to the ED and need for follow up stable at this time *DC/Admit/Observation/Transfer Diagnosis at time of Disposition: H/O tooth extraction, Bleeding gums - Discharge Dispostion Disposition: HOME Condition at time of disposition: Stable Admit: No - Referrals Referrals: Cesar Freire [Staff Physician] - Memo Encarnacion MD [Staff Physician] - - Patient Instructions Printed Discharge Instructions: DI for Post-Surgical Bleeding Additional Instructions: Please only have liquids or soft foods today. Please make an appointment to see your dentist today and please follow up with the oral surgeon. please make an appointment to see your PMD. Please return to the ED if you start to bleed or any further concerns. - Post Discharge Activity
[2017-10-01 07:49] LABS: BASO % 0.4 % (0-2.0); EOS % 0.1 % (0-4.5); MCH 30.2 pg (25.7-33.7); MCHC 32.8 g/dl (32.0-35.9); MEAN CELL VOLUME 92.1 fl (80-96); MEAN PLT VOLUME 8.1 fl (7.5-11.1); NEUT % 88.7 % (42.8-82.8); PLATELET COUNT 247 K/MM3 (134-434); RDW 13.7 % (11.9-15.9); WHITE BLOOD COUNT 12.9 K/mm3 (4.0-10.0)
[2017-10-01 08:19] LABS: ALBUMIN 3.3 g/dl (3.4-5.0); ALK PHOS 70 U/L (45-117); ANION GAP 7 (8-16); CALCIUM 8.6 mg/dL (8.5-10.1); CO2 27 mmol/L (21-32); CREATININE 0.9 mg/dL (0.7-1.3); GLUCOSE,RANDOM 118 mg/dL (74-106); MAGNESIUM 1.9 mg/dL (1.8-2.4); SGOT/AST 13 U/L (15-37); SGPT/ALT 19 U/L (12-78); TOT PROT 6.1 g/dl (6.4-8.2)
--- NOTE | 2017-10-01 10:10 | EKG ---
Test Reason : Blood Pressure : / mmHG Vent. Rate : 077 BPM Atrial Rate : 076 BPM P-R Int : 000 ms QRS Dur : 088 ms QT Int : 384 ms P-R-T Axes : 000 042 043 degrees QTc Int : 434 ms ATRIAL FIBRILLATION ABNORMAL ECG WHEN COMPARED WITH ECG OF 30-AUG-2017 17:21, NO SIGNIFICANT CHANGE WAS FOUND Confirmed by LEWIS SELLERS MD ([id number]) on 10/01/2017 10:09:51 AM Referred By: Confirmed By:LEWIS SELLERS MD
== END 2017-10-01 09:37 | disposition home or self-care (01) ==
LOC: JER 03:49
PROC: 3E033GC Introduction of Other Therapeutic Substance into Peripheral Vein, Percutaneous Approach (ICD-10-PCS; principal; 2017-10-01)
PROC: 3E0337Z Introduction of Electrolytic and Water Balance Substance into Peripheral Vein, Percutaneous Approach (ICD-10-PCS; 2017-10-01)
DX: K08.89 Other specified disorders of teeth and supporting structures (principal)
CPT/HCPCS: 36415; 80053; 82550; 83735; 84484; 85025; 85610; 86850; 86900; 86901; 93005; 93010; 99283-25